=== PATIENT | male | born 1990 | race Caucasian/White ===

== ENCOUNTER 2020-08-21 08:09 | Observation (INO) | payer BC ==
[~2020-08-21] VITALS: Ht 185.4 cm; Wt 80.0 kg
--- NOTE | 2020-08-21 08:24 | NUR ---
PT SILVINO, EMS REPORTS PT IS STAYING AT [facility] AND ATTEMPTED TO GET INTO SOMEONE ELSE'S ROOM. PT STATES THEY WERE HAVING "A LITTLE TOO MUCH FUN", ADMITS TO ETOH CONSUMPTION, DENIES DRUG USE. PT PRESENTS ALTERED, NO SIGNS OF TRAUMA OR INJ. SHIVA NIELSON AT BEDSIDE FOR EVAL.
--- NOTE | 2020-08-21 08:39 | NUR ---
PT aware of needed urine sample, snack provided.
[2020-08-21 08:49] LABS: ALANINE AMINOTRANSFERASE 70 U/L (12-78); ALBUMIN 4.1 g/dL (3.4-5.0); ANION GAP 5 mmol/L (5-15); CALCIUM 8.5 mg/dL (8.5-10.1); CHLORIDE 112 mmol/L (98-107); CREATININE 0.91 mg/dL (0.7-1.3)
[2020-08-21 08:54] LABS: ALKALINE PHOSPHATASE 119 U/L (45-117); BILIRUBIN,TOTAL 0.5 mg/dL (0.2-1.0); TOTAL PROTEIN 8.2 g/dL (6.4-8.2)
[2020-08-21 08:56] LABS: BASOPHILS % (AUTO) 1 % (0-1); EOSINOPHILS % (AUTO) 2 % (1-7); LYMPHOCYTES % (AUTO) 27 % (22-44); MEAN CORPUSCULAR HEMOGLOBIN 31.7 pg (27.5-34.5); MEAN CORPUSCULAR HGB CONC 35.2 g/dL (33.2-36.2); MEAN PLATELET VOLUME 9.6 fL (7.4-10.4); MONOCYTES % (AUTO) 7 % (2-9); NEUTROPHILS % (AUTO) 63 % (42-75); PLATELET COUNT 217 x10^3/uL (130-400); RED BLOOD COUNT 5.55 x10^6/uL (4.38-5.82); RED CELL DISTRIBUTION WIDTH 13.1 % (9.4-14.8)
[2020-08-21 09:03] LABS: MD NO
[2020-08-21 09:20] LABS: HEMOGRAM NOTE RECHECKED
--- NOTE | 2020-08-21 09:40 | NUR ---
Urine collected, pt more alert. ER NITHYA Gonzalez at bedside to discuss poc.
[2020-08-21 10:09] VITALS: BP 114/80
[2020-08-21 10:09] LABS: MICROSCOPIC NOT IND
[2020-08-21 10:20] LABS: AMPHETAMINE SCREEN, URINE Negative (Negative); BARBITURATE SCREEN, URINE Negative (Negative); BENZODIAZEPINE SCREEN, URINE Negative (Negative); CANNABINOID SCREEN, URINE Negative (Negative); COCAINE SCREEN, URINE Negative (Negative); METHADONE SCREEN, URINE Negative (Negative); OPIATE SCREEN, URINE Negative (Negative)
--- NOTE | 2020-08-21 10:44 | NUR ---
PT A&OX4, RESPS EVEN AND UNLABORED, NADN. WATER PROVIDED.
--- NOTE | 2020-08-21 10:54 | NUR ---
PT EDUCATED ON DISCHARGE, VERBALIZED UNDERSTANDING. AMBULATORY TO DISCHARGE WITH STEADY GAIT.
== END 2020-08-21 12:39 | disposition home or self-care (01) ==
LOC: ED 09:07 → EDIP 09:12
PROVIDERS: ADMIT Emergency Medicine; ATTEND Emergency Medicine
DX: F10.220 Alcohol dependence with intoxication, uncomplicated (principal)
CPT/HCPCS: 36415; 80053; 80307; 80320; 81003; 85025; 99284; G0378; G0480